=== PATIENT | male | born 1990 | race Caucasian/White ===

== ENCOUNTER → 2019-03-20 | Outpatient (REF) | payer BC ==
[2019-03-20 11:36] LABS: SEMEN APPEARANCE OPAQUE (OPAQUE)
[2019-03-20 11:37] LABS: SEMEN VISCOSITY LIQUID (LIQUID); SPERM CONCENTRATION 54.3 M/ml (>=15.0); WBC CONCENTRATION <=1 M/ml (<=1 M/ml)
== END ==
LOC: M LAB REF 11:24
PROVIDERS: ATTEND Obstetrics & Gynecology
DX: Z31.41 Encounter for fertility testing (principal)

== ENCOUNTER → 2020-03-18 | Outpatient (CLI) | payer BC | LOC: M LABSMTC 11:23 | PROVIDERS: ATTEND Surgery | DX: Z20.822 Contact with and (suspected) exposure to COVID-19 (principal) ==

== ENCOUNTER → 2020-11-18 | Outpatient (CLI) | payer BC | LOC: M LABSMTC 10:57 | PROVIDERS: ATTEND Pediatrics | DX: Z20.822 Contact with and (suspected) exposure to COVID-19 (principal) | CPT/HCPCS: C9803; U0003 ==

== ENCOUNTER → 2022-11-22 | Outpatient (REF) | payer OTHER | LOC: M LABSMT 08:15 | PROVIDERS: ATTEND Urology | DX: Z30.2 Encounter for sterilization (principal) ==

== ENCOUNTER → 2023-03-21 | Outpatient (REF) | payer OTHER ==
[2023-03-21 09:59] LABS: SEMEN APPEARANCE OPAQUE (OPAQUE); SEMEN VISCOSITY VISCOUS (LIQUID); SEMEN VOLUME 2.6 ml (2.0-5.0)
[2023-03-21 10:00] LABS: WBC CONCENTRATION >1 M/ml (<=1 M/ml)
== END ==
LOC: M SMT 09:23
PROVIDERS: ATTEND Urology
DX: Z30.2 Encounter for sterilization (principal)

== ENCOUNTER 2023-07-10 11:24 | Day surgery (SDC) | payer OTHER ==
[~2023-07-10] VITALS: Ht 185.4 cm; Wt 112.1 kg
[~2023-07-10 11:24] MED LIST: BRIN1TAB3 PO; CLON0.5T2 PO; KETO2CR; METO1TAB32 PO; PANT40TA29 PO; QUET300T2 PO; TACR0.1O; TRAZ-257 PO
[2023-07-10] MEDS ORDERED: LR 1,000 ML IV SCH ×3 (11:55→15:45)
[2023-07-10] MEDS ORDERED: fentaNYL 100 MCG/2 ML INJECTION As Ordered ONE (12:41)
[2023-07-10] MEDS ORDERED: SUGAMMADEX SODIUM 500 MG/5 ML VIAL (BRIDION) As Ordered ONE (12:41)
[2023-07-10] MEDS ORDERED: propofoL 200 MG/20 ML VIAL As Ordered ONE (12:41)
[2023-07-10] MEDS ORDERED: LIDOCAINE 2% 100MG/5ML SDV (FOR ANES.) As Ordered ONE (12:41)
[2023-07-10] MEDS ORDERED: ROCURONIUM BROMIDE 50MG/5ML VIAL As Ordered ONE (12:41)
[2023-07-10] MEDS ORDERED: MIDAZOLAM INJ 2MG/2ML VIAL As Ordered ONE (12:41)
[2023-07-10] MEDS ORDERED: ONDANSETRON 4MG 2ML VIAL As Ordered ONE (12:50)
[2023-07-10] MEDS ORDERED: ONDANSETRON 4MG 2ML VIAL IV PRN (14:50)
[2023-07-10] MEDS: fentaNYL 100 MCG/2 ML INJECTION IV PRN (15:10)
[2023-07-10] MEDS ORDERED: HYDROcodone/APAP LIQUID 7.5-325MG 15ML UDC (LORTAB ELIXIR) PO PRN (15:45)
[2023-07-10] MEDS: HYDROMORPHONE HCL 0.5 MG/ 0.5 ML SYRINGE IV PRN (15:46)
[2023-07-10] MEDS: oxyCODONE 5MG TAB PO PRN (16:05)
[2023-07-10 17:00] VITALS: BP 133/77; TEMP 98.1; O2SAT 96
== END 2023-07-10 17:12 | disposition home or self-care (01) ==
LOC: M SDC 11:24
PROVIDERS: ATTEND Otolaryngology
DX: J35.01 Chronic tonsillitis (principal); I10 Essential (primary) hypertension; K21.9 Gastro-esophageal reflux disease without esophagitis; F41.9 Anxiety disorder, unspecified; F32.A Depression, unspecified; F17.220 Nicotine dependence, chewing tobacco, uncomplicated; Z79.899 Other long term (current) drug therapy
CPT/HCPCS: 42826; 88302; J0665; J1100; J1170; J2250; J2405; J3010